=== PATIENT | female | born 1930 | race Caucasian/White ===

== ENCOUNTER 2017-11-21 13:50 | Emergency (ER) | payer OTHER ==
[2017-11-21] MEDS ORDERED: ASPIRIN 81 MG CHEWABLE TAB PO ONE (14:04)
[2017-11-21] MEDS ORDERED: ASPIRIN 81 MG CHEWABLE TAB ONE (14:04)
--- NOTE | 2017-11-21 14:04 | CPEKG ---
Heart Rate: 91 RR Interval: 659 P-R Interval: 180 QRSD Interval: 78 QT Interval: 360 QTC Interval: 443 P Eden: 40 QRS Eden: -12 T Wave Eden: 44 EKG Severity - NORMAL ECG - EKG Impression: SINUS RHYTHM EKG Impression: EKG performed for chest pain. EKG shows normal sinus rhythm with normal rate, EKG Impression: normal intervals normal axis. No acute ST T wave changes. Impression normal EKG Impression: EKG. Electronically Signed By: Elva Argueta 21-Nov-2017 14:34:20
[2017-11-21 14:16] LABS: PLATELET COUNT 234 10^3/uL (150-400)
--- NOTE | 2017-11-21 14:30 | EDPHY ---
H & P Smoking Status: Never smoked Time Seen by Provider: 11/21/17 14:03 HPI/ROS: CHIEF COMPLAINT: Chest pain HISTORY OF PRESENT ILLNESS: Patient states she has had 2 episodes of chest pain. She describes the 1st episode last night in the evening as sharp, vaguely substernal with radiation to the epigastrium and back. It lasted 15-20 seconds. It resolved. She denies any shortness of breath with this. She also said she had an episode around 730 this morning that was similar, lasting about 15 sec, also described as sharp. It resolved. She goes on to tell me that she has had a vague "heaviness"or "nagging" sensation that is not described as pain in the same region. Additionally she states she has had some"indigestion"or "stomach problems"for about a week. She says it has been persistent but not associated with nausea, vomiting, diarrhea. She denies dysuria. She has had no fevers or other recent illnesses. Patient states currently she is pain free without any chest pain or that "nagging" sensation in her chest. She does describe mild upper abdominal discomfort. She does not have a primary care physician but called a Dr. Evans to make an appointment today and was referred to the emergency department REVIEW OF SYSTEMS: Constitutional: No fever, no chills. Eyes: No discharge. ENT: No sore throat. Cardiovascular: Chest pain as per HPI, no palpitations. Respiratory: No cough, no shortness of breath. Gastrointestinal: Abdominal discomfort per HPI, no vomiting. Genitourinary: No dysuria. Musculoskeletal: No back pain. Skin: No rashes. Neurological: No headache. General Appearance: Alert, no distress. Eyes: Pupils equal and round no pallor or injection. ENT, Mouth: Mucous membranes moist. Respiratory: There are no retractions, lungs are clear to auscultation. Cardiovascular: Regular rate and rhythm. Gastrointestinal: Abdomen is soft with tenderness, moderate, to the RUQ, no masses, bowel sounds normal. No guarding, no peritoneal signs. Neurological: Awake and alert, no focal neurologic deficits, cranial nerves intact Skin: Warm and dry, no rashes. Musculoskeletal: Neck is supple nontender. Extremities are symmetrical, full range of motion, bilateral edema, mild, at baseline per patient. Psychiatric: Patient is oriented X 3, there is no agitation. Medical/surgical history: History of hypertension, had cardiac workup at [facility] in 2013 including stress test which was unremarkable. History appendectomy , right ovarian cystectomy. Social history: Nonsmoker, denies ETOH. (Elva Argueta) Constitutional: Initial Vital Signs Temperature (C) 36.7 C 11/21/17 13:59 Heart Rate 92 11/21/17 13:59 Respiratory Rate 16 11/21/17 13:59 Blood Pressure 186/95 H 11/21/17 13:59 O2 Sat (%) 94 11/21/17 13:59 O2 Delivery Mode Room Air Allergies/Adverse Reactions: No Known Allergies Allergy (Verified 11/21/17 14:02) Home Medications: Medication Instructions Recorded Amlodipine Besylate 11/21/17 Clonidine 11/21/17 Medical Decision Making - Diagnostics Imaging Results: Imaging Impressions Chest X-Ray 11/21/17 14:07 Impression: 1. No active cardiopulmonary disease seen. 2. Mildly hyperexpanded lungs. Consider mild underlying COPD. Abdomen Ultrasound 11/21/17 14:25 Impression: Normal ultrasound abdomen complete. Findings and recommendations discussed with Emergency Department physician, Dr. Hinojosa at 15:45 hour, 11/21/2017. Final report concurs with initial preliminary interpretation. ED Course/Re-evaluation: EKG shows normal sinus rhythm no acute findings. See trace master for details. Patient history, physical findings, assessment and plan discussed with Dr. Hinojosa at the time of my departure from the emergency department. Still pending is abdominal ultrasound as well as liver function tests and lipase. Differential considered includes ACS, pancreatitis, Biliary colic, reflux. Feel most likely symptoms have a abdominal etiology and low suspicion for ACS. Expect that if work up unremarkable can go home with close PCP follow up and strict return precautions. (Elva Argueta) Other Provider: 1500 care assumed by me from Dr. Argueta pending ultrasound results and lipase and LFTs. 87-year-old who is having 2 episodes of last 24 hr of very brief 10 15 sec of chest discomfort who has reproducible abdominal tenderness on examination. 1600 patient remains symptom free. ECG is normal. Chest x-ray is normal. Gallbladder ultrasound is normal. Troponin is negative. D-dimer is negative. CBC is normal. Chem is normal including normal liver function tests and normal lipase. I agree they believe her symptoms are likely more gastrointestinal then cardiac in nature. I do not believe cardiac chest pain with present as 10- 15 seconds of pain that occurred twice in 24 hr. She has been symptom free since this morning. Normal troponin. There is nothing to suggest ACS at this time. I have discussed with the results with the patient. She is agree with the plan to go home and follow up with Dr. Evans as an outpatient. She will certainly return sooner if the pain returns and especially if it lasts. (Gunner Hinojosa) - Data Points Laboratory Results: Laboratory Results 11/21/17 14:13 11/21/17 11/21/17 11/21/17 14:25 14:18 14:13 WBC RBC Hgb POC Hgb 15.3 gm/dL gm/dL (12.6-16.3) Hct POC Hct 45 % % (38-47) MCV MCH MCHC RDW Plt Count MPV Neut % (Auto) Lymph % (Auto) Storey % (Auto) Eos % (Auto) Baso % (Auto) Nucleat RBC Rel Count Absolute Neuts (auto) Absolute Lymphs (auto) Absolute Monos (auto) Absolute Eos (auto) Absolute Basos (auto) Absolute Nucleated RBC Immature Gran % Immature Gran # D-Dimer 0.38 ug/mLFEU ug/mLFEU (0.00-0.50) POC Sodium 141 mEq/L mEq/L (135-145) POC Potassium 3.7 mEq/L mEq/L (3.3-5.0) POC Chloride 106 mEq/L mEq/L (97-110) POC BUN 16 mg/dL mg/dL (7-23) POC Creatinine 0.8 mg/dL mg/dL (0.6-1.0) POC Glucose 113 mg/dL H mg/dL (70-100) Total Bilirubin 0.9 mg/dL mg/dL (0.1-1.4) Conjugated Bilirubin 0.4 mg/dL mg/dL (0.0-0.5) Unconjugated Bilirubin 0.5 mg/dL mg/dL (0.0-1.1) AST 25 IU/L IU/L (14-46) ALT 37 IU/L IU/L (9-52) Alkaline Phosphatase 119 IU/L IU/L (38-126) Troponin I Total Protein 7.7 g/dL g/dL (6.3-8.2) Albumin 4.7 g/dL g/dL (3.5-5.0) Lipase 178 IU/L IU/L (23-300) 11/21/17 11/21/17 14:13 14:13 WBC 5.83 10^3/uL 10^3/uL (3.80-9.50) RBC 5.21 10^6/uL 10^6/uL (4.18-5.33) Hgb 16.0 g/dL g/dL (12.6-16.3) POC Hgb Hct 47.1 % H % (38.0-47.0) POC Hct MCV 90.4 fL fL (81.5-99.8) MCH 30.7 pg pg (27.9-34.1) MCHC 34.0 g/dL g/dL (32.4-36.7) RDW 12.7 % % (11.5-15.2) Plt Count 234 10^3/uL 10^3/uL (150-400) MPV 10.4 fL fL (8.7-11.7) Neut % (Auto) 58.2 % % (39.3-74.2) Lymph % (Auto) 28.6 % % (15.0-45.0) Storey % (Auto) 9.4 % % (4.5-13.0) Eos % (Auto) 2.6 % % (0.6-7.6) Baso % (Auto) 1.0 % % (0.3-1.7) Nucleat RBC Rel Count 0.0 % % (0.0-0.2) Absolute Neuts (auto) 3.39 10^3/uL 10^3/uL (1.70-6.50) Absolute Lymphs (auto) 1.67 10^3/uL 10^3/uL (1.00-3.00) Absolute Monos (auto) 0.55 10^3/uL 10^3/uL (0.30-0.80) Absolute Eos (auto) 0.15 10^3/uL 10^3/uL (0.03-0.40) Absolute Basos (auto) 0.06 10^3/uL 10^3/uL (0.02-0.10) Absolute Nucleated RBC 0.00 10^3/uL 10^3/uL (0-0.01) Immature Gran % 0.2 % % (0.0-1.1) Immature Gran # 0.01 10^3/uL 10^3/uL (0.00-0.10) D-Dimer POC Sodium POC Potassium POC Chloride POC BUN POC Creatinine POC Glucose Total Bilirubin Conjugated Bilirubin Unconjugated Bilirubin AST ALT Alkaline Phosphatase Troponin I < 0.012 ng/mL ng/mL (0.000-0.034) Total Protein Albumin Lipase Medications Given: Discontinued Medications Aspirin (Aspirin) 324 mg PO EDNOW ONE Stop: 11/21/17 14:05 Last Admin: 11/21/17 14:06 Dose: 243 mg Point of Care Test Results: 11/21/17 14:18 POC Sodium 141 POC Potassium 3.7 POC Chloride 106 POC BUN 16 POC Creatinine 0.8 POC Glucose 113 H Departure - Departure Disposition: Home, Routine, Self-Care Clinical Impression: Chest pain Condition: Good Instructions: Chest Pain (ED) Additional Instructions: Follow up with Dr. Evans in 4-5 days for further evaluation. Return to the emergency department if the pain returns, you feel lightheaded or faint, have shortness of breath, or for any other concerns. Referrals: Rashmi Evans MD [Primary Care Provider] - As per Instructions
[2017-11-21 14:51] VITALS: RESP 18
[2017-11-21 16:03] VITALS: BP 124/62; PULSE 79; TEMP 98; O2SAT 97
== END 2017-11-21 16:01 | disposition home or self-care (01) ==
LOC: CED 13:50
DX: R07.9 Chest pain, unspecified (principal); I10 Essential (primary) hypertension
CPT/HCPCS: 71045-PO; 76700-PO; 80076-PO; 82947-QW; 83690-PO; 84484-PO; 85025-PO; 85378-PO